=== PATIENT | female | born 1995 | race Caucasian/White ===

== ENCOUNTER → 2020-06-20 | Outpatient (CLI) | payer OTHER ==
--- NOTE | 2020-06-20 11:37 | RAD ---
PROCEDURE: PELVIS STUDY DATE: 06/20/2020 CLINICAL INDICATION / HISTORY: Reason: FOLLOW UP FRACTURE OF SACRUM, RIGHT PUBIS, RIGHT ILIUM / Spl. Instructions: / History: . TECHNIQUE: Single AP view of the pelvis COMPARISON: None currently available FINDINGS: The osseous structures are normally mineralized. There is normal bony alignment present with the femoral heads well-seated within the acetabuli. There is no evidence of acute fracture or dislocation identified. There is subtle linear sclerosis across the right iliac bone, and across the right superior and inferior pubic rami, consistent with well-healed fractures. Reported prior sacral fracture is not as well shown on this examination. IMPRESSION: Evidence of osseous healing of the right iliac and superior inferior pubic rami as described. No acute or aggressive osseous lesions shown. Electronically signed by: Casper Saldaña MD (06/20/2020 11:34 AM) [id number]
== END | disposition home or self-care (01) ==
LOC: DXRAD 09:46
PROVIDERS: ATTEND Physician Assistant
DX: S32.110D Nondisplaced Zone I fracture of sacrum, subsequent encounter for fracture with routine healing (principal); X58.XXXD Exposure to other specified factors, subsequent encounter
CPT/HCPCS: 72170